=== PATIENT | female | born 1995 | race Caucasian/White ===

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

== ENCOUNTER → 2017-02-15 | Outpatient (CLI) | payer BC ==
[~2017-02-15] MED LIST changes: +SINCALIDE INJ 1.8 MCG in SODIUM CHLORIDE 0.9% 100ML 100 ML IV ONE
--- NOTE | 2017-02-15 13:09 | DIAGNOSTIC IMAGING REPORT ---
NUCLEAR HEPATOBILIARY SCAN WITH EJECTION FRACTION IMAGING CLINICAL HISTORY: Nausea. Epigastric abdominal pain. COMPARISON STUDY: Abdominal ultrasound dated 08/17/2016. TECHNIQUE: Dynamic images of the liver and anterior abdomen were obtained every 5 minutes for a total of 60 minutes following the IV administration of 5.3mCi of technetium 99m Choletec. 1.8 mcg of sincalide was then injected with additional images acquired every 5 minutes for 45 minutes to calculate the gallbladder ejection fraction. FINDINGS: The hepatobiliary scan shows prompt and homogeneous hepatic uptake. There is visualized activity within the intra and extrahepatic biliary tree at 10 minutes, and within the gallbladder at 35 minutes. There is normal biliary to bowel transit, with small bowel visualized by 20 minutes. On the sincalide imaging, the gallbladder ejection fraction was measured at 88%. IMPRESSION: 1. Unremarkable nuclear hepatobiliary scan. There is no scintigraphic evidence of cholecystitis. 2. The gallbladder ejection fraction measured 88% which is normal. Electronically signed by: Eric Brown M.D. 02/15/2017 1:08 PM Dictated Date/Time: 02/15/2017 1:07 PM
== END | disposition home or self-care (01) ==
LOC: C.NUCL 10:09
PROVIDERS: ATTEND Internal Medicine Gastroenterology
DX: R11.0 Nausea (principal); R10.13 Epigastric pain

== ENCOUNTER → 2017-05-08 | Outpatient (CLI) | payer OTHER ==
[~2017-05-08] MED LIST changes: +GADAVIST IV PRN; -SINCALIDE INJ 1.8 MCG in SODIUM CHLORIDE 0.9% 100ML 100 ML IV ONE
--- NOTE | 2017-05-08 15:33 | DIAGNOSTIC IMAGING REPORT ---
MRI OF THE BRAIN WITHOUT AND WITH IV CONTRAST CLINICAL HISTORY: POST CONCUSSION SYNDROME WORSENING DAILY HEADACHES. COMPARISON STUDY: No previous studies for comparison. TECHNIQUE: MRI of the brain was performed from the vertex to the skull base utilizing various T1 and T2 weighted sequences. Following the IV administration of 8 mL of Gadavist contrast, additional enhanced images were obtained. FINDINGS: Sagittal T1, axial diffusion, proton density and T2 weighted axial, coronal FLAIR, and pre and post axial T1-weighted images were acquired. These were supplemented with post gadolinium coronal T1 weighted images. No intra or extra-axial mass lesions are visualized. Axial diffusion-weighted images reveal no evidence of acute or subacute infarction. There is no evidence of ventricular dilatation. Proton density T2-weighted and FLAIR images reveal no significant intervertebral signal abnormalities. There are no abnormal flow voids. There is no evidence of pathologic enhancement. There is a 9 mm T1 and T2 bright lesion within or abutting the left anterior clivus. This is of doubtful acute clinical significance. Although the odontoid appears unusual on the sagittal images, no odontoid abnormalities are visualized on the coronal FLAIR sequence. IMPRESSION: 1. 9 mm T1 and T2 bright lesion within or abutting the left anterior clivus. This is of doubtful acute clinical significance 2. Otherwise normal MRI of the brain. Electronically signed by: Kavin Walden M.D. 05/08/2017 3:32 PM Dictated Date/Time: 05/08/2017 3:26 PM
== END | disposition home or self-care (01) ==
LOC: C.MRI 11:00
PROVIDERS: ATTEND Nurse Practitioner Family
DX: R51 Headache (principal); F07.81 Postconcussional syndrome; R90.89 Other abnormal findings on diagnostic imaging of central nervous system

== ENCOUNTER → 2017-05-09 | Outpatient (CLI) | payer OTHER ==
[~2017-05-09] MED LIST changes: -GADAVIST IV PRN; +OPTIRAY 320 IV PRN
--- NOTE | 2017-05-09 14:27 | DIAGNOSTIC IMAGING REPORT ---
CT ABD/PELVIS IV AND ORAL CONT CLINICAL HISTORY: ABD Pain, mild WEIGHT LOSS COMPARISON STUDY: None. TECHNIQUE: Following the IV administration of 93 mL of Optiray-320, CT scan of the abdomen and pelvis was performed from the lung bases to the proximal femurs. Images are reviewed in the axial, sagittal, and coronal planes. IV contrast was administered without complication. A dose lowering technique was utilized adhering to the principles of ALARA. CT DOSE: 757.06 mGycm FINDINGS: Lower chest: The heart is normal in size and configuration, without pericardial effusion. The lung bases and pleural spaces are clear. Liver: The contrast-enhanced liver is normal in size, contour, and attenuation. There is no intrahepatic biliary ductal dilatation. The hepatic veins and portal veins are patent. Gallbladder: Unremarkable. Spleen: Normal in size and attenuation. Pancreas: Unremarkable. Adrenal glands: Unremarkable. Kidneys: There is symmetric renal cortical enhancement. The kidneys are normal in size without hydronephrosis. Bowel: There are no transition zones to indicate bowel obstruction. There is no evidence of acute appendicitis. There is no evidence of acute diverticulitis. Peritoneum: There is no intraperitoneal free air or abdominal ascites. Vasculature: The abdominal aorta is normal in course and caliber. Adenopathy: None. Pelvic viscera: The bladder, and pelvic viscera are unremarkable. Skeletal structures: No destructive osseous lesions are seen. IMPRESSION: Normal study Electronically signed by: Kavin Walden M.D. 05/09/2017 2:26 PM Dictated Date/Time: 05/09/2017 2:23 PM
== END | disposition home or self-care (01) ==
LOC: C.CTS 13:51
PROVIDERS: ATTEND Internal Medicine Gastroenterology
DX: R10.9 Unspecified abdominal pain (principal); R63.4 Abnormal weight loss

== ENCOUNTER → 2017-05-16 | Outpatient (CLI) | payer OTHER ==
[~2017-05-16] MED LIST changes: -OPTIRAY 320 IV PRN
--- NOTE | 2017-05-16 13:22 | DIAGNOSTIC IMAGING REPORT ---
NUCLEAR GASTRIC EMPTYING STUDY HISTORY: Nausea. Generalized abdominal pain. Mild weight loss. COMPARISON: None. TECHNIQUE: Following the oral administration of 1.1 mCi of technetium 99m sulfur colloid in egg sandwich and 8 ounces of water, static abdominal images are obtained anteriorly and posteriorly at 0 minutes, 1 hour, 2 hour, and 4 hour time intervals. Gastric emptying was calculated utilizing the geometric mean method. FINDINGS: There is approximately 49% activity remaining at the 1 hour time interval (normal is less than 90%), 18% remaining at the 2 hour time interval (normal is less than 60%), and 7% activity remaining at the 4 hour time interval (normal is less than 10%). IMPRESSION: No evidence for delayed gastric emptying. Electronically signed by: Jose Loco M.D. 05/16/2017 1:21 PM Dictated Date/Time: 05/16/2017 1:20 PM
== END | disposition home or self-care (01) ==
LOC: C.NUCL 08:31
PROVIDERS: ATTEND Internal Medicine Gastroenterology
DX: R11.0 Nausea (principal)

== ENCOUNTER → 2017-08-16 | Outpatient (CLI) | payer OTHER | END | disposition home or self-care (01) | LOC: C.LAB 12:35 | PROVIDERS: ATTEND Nutritionist ==